=== PATIENT | male | born 1990 | race Caucasian/White ===

== ENCOUNTER 2019-06-11 12:22 | Emergency (ER) | payer MEDICAID, OTHER ==
[~2019-06-11] VITALS: Ht 185.4 cm; Wt 99.8 kg
[2019-06-11 13:45] VITALS: BP 148/94
== END 2019-06-11 14:05 | disposition home or self-care (01) ==
LOC: ER 12:27
DX: F41.1 Generalized anxiety disorder (principal); R42 Dizziness and giddiness; R03.0 Elevated blood-pressure reading, without diagnosis of hypertension; F17.210 Nicotine dependence, cigarettes, uncomplicated
CPT/HCPCS: 93005